=== PATIENT | female | born 1960 ===

== ENCOUNTER 2018-04-29 14:02 | Emergency (ER) | payer OTHER ==
[2018-04-29 14:11] VITALS: BP 149/81; PULSE 79; RESP 20; TEMP 98.4; O2SAT 98
--- NOTE | 2018-04-29 15:38 | ED PDOC ---
Upper Extremity Pain/Injury Time Seen by Provider: 04/29/18 14:56 Chief Complaint (Nursing): Upper Extremity Problem/Injury Chief Complaint (Provider): Left Shoulder Pain History Per: Patient, [employer] (#[id number]) History/Exam Limitations: no limitations Onset/Duration Of Symptoms: Days (x1 month) Current Symptoms Are (Timing): Still Present Additional Complaint(s): 57 year old female presents to the ED for evaluation of left shoulder pain x one month. Pain is located in the anterior left shoulder and worse with abduction and flexion. 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 Reports taking Advil, last dose today at 10:00 200mg, with no relief. Otherwise, denies falls/injury, fevers/chills, chest pain, palpitations, diaphoresis, neck/jaw pain, trouble breathing, numbness, paresthesias, weakness. PMD: none provided Past Medical History Reviewed: Historical Data, Nursing Documentation, Vital Signs Vital Signs: Last Vital Signs Temp 98.4 F 04/29/18 14:11 Pulse 79 04/29/18 14:11 Resp 20 04/29/18 14:11 BP 149/81 04/29/18 14:11 Pulse Ox 98 04/29/18 14:11 - Medical History PMH: Hypothyroidism - Family History Family History: States: Unknown Family Hx - Home Medications Home Medications: Ambulatory Orders Medication Instructions Recorded Lidocaine 5% [Lidoderm] 1 ea TD 10 PRN #10 patch 04/29/18 Naproxen 500 mg PO Q12H PRN #30 tab 04/29/18 - Allergies Allergies/Adverse Reactions: Allergies Allergy/AdvReac Type Severity Reaction Status Date / Time No Known Allergies Allergy Verified 04/29/18 14:09 Review of Systems ROS Statement: Except As Marked, All Systems Reviewed And Found Negative Constitutional: Negative for: Fever, Chills Cardiovascular: Negative for: Chest Pain, Palpitations, Orthopnea, Edema, Light Headedness Respiratory: Negative for: Cough, Shortness of Breath, Hemoptysis, SOB with Exertion, Pleuritic Pain, Sputum, Wheezing Gastrointestinal: Negative for: Nausea, Vomiting, Abdominal Pain Genitourinary Female: Negative for: Dysuria, Frequency Musculoskeletal: Positive for: Shoulder Pain (left radiating down arm into middle digit). Negative for: Neck Pain, Arm Pain Skin: Negative for: Rash, Lesions, Bruising Neurological: Negative for: Weakness, Numbness (or paresthesias), Headache, Dizziness Physical Exam - Reviewed Nursing Documentation Reviewed: Yes Vital Signs Reviewed: Yes - Physical Exam Appears: Positive for: In Acute Distress (mild painful) Head Exam: Positive for: ATRAUMATIC, NORMOCEPHALIC Skin: Positive for: Normal Color, Warm, Dry Eye Exam: Positive for: Normal appearance Neck: Positive for: Normal, Painless ROM Cardiovascular/Chest: Positive for: Regular Rate, Rhythm Respiratory: Positive for: Normal Breath Sounds. Negative for: Respiratory Distress Pulses-Radial (L): 2+ Pulses-Radial (R): 2+ Gastrointestinal/Abdominal: Positive for: Normal Exam, Bowel Sounds (normoactive), Soft Back: Positive for: Normal Inspection. Negative for: L CVA Tenderness, R CVA Tenderness, Vertebral Tenderness, Decreased ROM, Muscle Spasm Extremity: Positive for: Tenderness (anterior left shoulder), Capillary Refill (<2s), Other (bilat shoulders: normal inspection; left shoulder neurovascularly intact; positive [place]'s test left shoulder; positive Burkett-Pedro Luis test left shoulder). Negative for: Normal ROM (decreased abduction and flexion in left shoulder secondary to pain), Deformity, Swelling Neurologic/Psych: Positive for: Alert, Oriented (x3), Gait (steady). Negative for: Motor/Sensory Deficits - ECG O2 Sat by Pulse Oximetry: 98 (RA) Pulse Ox Interpretation: Normal Medical Decision Making Medical Decision Making: Time: 1531 Initial Impression: left shoulder pain Initial Plan: --Flexeril 10mg PO --Toradol 60mg IM --Left shoulder XR Pt reports resolution of pain after medications. Left Shoulder XR: no fracture or dislocation Plan of care discussed with patient, and strict instructions given regarding prescriptions, importance of follow up, and signs to return to Emergency Department, to include chest pain, worsening shoulder pain, N/V, dizziness, or any other new/worsening symptoms. Patient verbalizes understanding of discussion. Patient A&Ox3, ambulating with steady gait, stable for discharge home. Impression: Shoulder pain, most likely Rotator Cuff Injury Plan: * Naproxen * Ortho Followup * Followup with primary doctor/clinic within 2 days * Return to ER for new/worsening symptoms Scribe Attestation: Documented by Priti Zhang, acting as a scribe for Katerine Trevino PA-C Provider Scribe Attestation: All medical record entries made by the Scribe were at my direction and personally dictated by me. I have reviewed the chart and agree that the record accurately reflects my personal performance of the history, physical exam, medical decision making, and the department course for this patient. I have also personally directed, reviewed, and agree with the discharge instructions and disposition. Disposition - Clinical Impression Clinical Impression: Shoulder pain, Rotator cuff dysfunction - Disposition Referrals: Darien Saenz III, MD [Staff Provider] - Disposition: Routine/Home Disposition Time: 17:00 Condition: IMPROVED Additional Instructions: [place] naproxeno cada 12 horas con alimentos segn sea necesario para el dolor. Use los parches de lidoderm 12 horas despus, 12 horas menos Seguimiento con ortopedia en 2 ordaz para MRI Volver a la kate de emergencias para los sntomas nuevos / que empeoran Prescriptions: Lidocaine 5% [Lidoderm] 1 ea TD 10 PRN #10 patch PRN Reason: Pain, Mild (1-3) Naproxen 500 mg PO Q12H PRN #30 tab PRN Reason: Pain, Mild (1-3) Instructions: Shoulder Pain (DC), Rotator Cuff Injury (DC) Forms: [employer] (Polish), [facility] ED School/Work Excuse
--- NOTE | 2018-04-29 16:09 | RAD ---
Date of service: 04/29/2018 PROCEDURE: Radiographs of the Left Shoulder HISTORY: left shoulder pain COMPARISON: No prior. FINDINGS: BONES: Normal. No fracture. JOINTS: Glenohumeral and acromioclavicular joints preserved. No significant osteoarthritis. SOFT TISSUES: Normal. OTHER FINDINGS: None. IMPRESSION: No evidence of acute displaced fracture nor dislocation.
== END 2018-04-29 17:32 | disposition home or self-care (01) ==
LOC: EDBD 14:02 → H.ER 14:02
DX: M25.512 Pain in left shoulder (principal); E03.9 Hypothyroidism, unspecified
CPT/HCPCS: 73030; 96372; 99283; J1885